=== PATIENT | female | born 1980 | race Caucasian/White ===

== ENCOUNTER → 2016-11-05 | Outpatient (CLI) | payer OTHER ==
--- NOTE | 2016-11-05 12:58 | US ---
November 05, 2016 Dear Providers of the Center [facility], Thank you for requesting a ultrasound to evaluate anatomy for your patient, Mrs. Powers. As yo u know, Airam is a 36 year old G 3, P 2000 with a shanks dating 20 w 1 d; DANIELLE of by 9 week ultrasound. Aneuploidy screening was not performed. ULTRASOUND Number of fetuses: 1 Placental location: Posterior; no previa Placental cord insertion: Intraplacental presentation: Breech Cervix: 4.4 cm viewed transabdominally Maximum Vertical Pocket: 4.1 cm The adnexa were evaluated. No pathology was seen. Right ovary is visualized and seen as normal. It measures 2.1 x 1.2 x 2.2 cm. Left ovary is visualized and seen as normal. It measures 3.0 x 1.8 x 2.5 cm. MEASUREMENTS: Biparietal diameter: 46 mm 19 weeks, 6 days Head circumference: 180 mm 20 weeks, 4 days Abdominal circumference: 160 mm 21 weeks, 2 days Femur length: 33 mm 20 weeks, 3 days Humerus length: 34 mm 21 weeks, 3 days Transcerebellar diameter: 21 mm 20 weeks, 1 days Average ultrasound age: 20 weeks, 4 days Estimated weight: 374 gm weight percentile: 79% ANATOMY Supratentorial brain: Normal including views of the falx, cavum septum pellucidum and choroids Lateral Ventricle: Normal, measuring 5.3 mm Posterior fossa: Normal including the cerebellum and cisterna magna Spine: Normal Nuchal fold: 5.9 mm normal Face: Normal views of the lip and nose area Profile: Normal Palate: Normal appearance of the alveolar ridge Heart: Four Chamber View: Normal LVOT: Normal RVOT: Normal 3VV: Seen Trachel View Seen Aortic Arch: Seen Ductal Arch: Seen SVC/IVC: Seen Heart Rate 155 bpm Diaphragm: Normal appearance without overt abnormality detected Stomach: Normal Umbilical cord insertion: Normal Right kidney: Normal Left kidney: Normal Bladder: Normal Number of cord vessels: Three Upper extremities: Normal Lower extremities: Normal Gender: Female IMPRESSION: 1. Intrauterine at 20 w 1 d, ultrasound is consistent with her established DANIELLE of 03/24/17 . 2. Normal anatomical survey. 3. Cervical length is normal at 4.4 cm without evidence of insufficiency. RECOMMENDATIONS: I was pleased to review today's ultrasound with your patient and her . I reassured them that the baby is growing appropriately with normal amniotic fluid volume. Our detailed review of the feta l anatomy did not reveal any overt abnormalities. Future ultrasound and consultation is left to your clinical discretion. Thank you for allowing us the opportunity to evaluate your patient. Should you have any further ques tions or concerns please do not hesitate to contact me. Low risk; no E&M. Yumiko Painter MD Pharmacist Assistant Maternal Medicine Diagnosis Department of Obstetrics & Gynecology [facility]
--- NOTE | 2016-11-05 17:18 | US ---
OB Sonogram History: DANIELLE March 24, 2017, 20 weeks 1 day, check growth and anatomy Comparison: None Findings: There is a single viable intrauterine gestation in breech presentation. The cervix is close d measuring 4.4 cm transabdominally. The placenta is posterior without previa. The posterior margin o f the placenta is 2.3 cm above the internal os. The umbilical cord inserts normally into the placenta . Both maternal ovaries are normal. Maximum amniotic fluid pocket = 4.1 cm. The visualized face, intracranial contents and spine look normal. The heart i s 4 chambered and has a rate of 155 bpm. There is a normal interventricular septum and right and left ventricular outflow tracts. Fluid is identified in the stomach and urinary bladder. The renal region looks normal. The umbilical cord insertion site is normal. 4 extremities are present. BPD = 46 mm = 19 weeks 6 days Head circumference = 180 mm = 20 weeks 4 days Abdominal circumference = 160 mm = 21 weeks 2 days Femur length = 33 mm = 20 weeks 3 days Humeral length = 34 mm = 21 weeks 3 days Cerebellar width = 21 mm = 20 weeks 1 day Cisterna magna = 3 mm Estimated weight = 79 percentile Average gestational age by ultrasound = 20 weeks 4 days Ultrasound DANIELLE March 21, 2017 Impression: Size consistent with dates. The fetus is currently breech. This report should be read in conjunction with a consultation by Dr. Yumiko Painter.
== END ==
LOC: FIMAGING 10:35
PROVIDERS: ATTEND Advanced Practice Midwife
DX: Z34.92 Encounter for supervision of normal pregnancy, unspecified, second trimester (principal); Z3A.20 20 weeks gestation of pregnancy

== ENCOUNTER → 2017-05-13 | Outpatient (CLI) | payer OTHER | LOC: FLACT 09:47 | PROVIDERS: ATTEND Advanced Practice Midwife | DX: Z39.1 Encounter for care and examination of lactating mother (principal) | CPT/HCPCS: G0463 ==